=== PATIENT | female | born 1985 | race Caucasian/White ===

== ENCOUNTER 2018-01-19 13:12 | Outpatient (CLI) | payer OTHER, SELFPAY | END 2018-01-19 14:40 | disposition home or self-care (01) | LOC: LABOR 14:41 → OB 01-22 11:12 | PROVIDERS: PCP Family Medicine; Visit Provider Obstetrics & Gynecology | DX: O34.33 Maternal care for cervical incompetence, third trimester (principal); Z3A.36 36 weeks gestation of pregnancy | CPT/HCPCS: 59025; G0378; G0379 ==

== ENCOUNTER 2018-09-20 11:20 | Emergency (ER) | payer OTHER, SELFPAY ==
[2018-09-20 12:00] VITALS: BP 123/83; PULSE 88; RESP 18; TEMP 36.2; O2SAT 100; BMI 24.0
--- NOTE | 2018-09-20 12:26 | ED.PSYCH ---
HPI - Psych General Chief Complaint: Psychiatric Symptoms Stated Complaint: suicidal Time Seen by Provider: 09/20/18 12:25 Source: patient and family Mode of arrival: ambulatory Limitations: no limitations History of Present Illness HPI Narrative: This is a 32-year-old who comes in with complaint of depression and suicidal ideation. Patient is about 6-7 months . She states she has had history of depression in past. She has been hospitalized twice in the past all anteriorly. The most recent was in 2010. She has been taking Abilify, escitalopram as well as Wellbutrin. They increased her Abilify dose about 30 days ago and initially she had some improvement in her symptomatology but that has been worsening. She states she had a friend visiting at that time as well so she thought that may have been a compounding factor. Patient states that she has been having increasing thoughts of suicide and does not feel safe that she would not perform these. She states that she is concerned that if she was an impulsive moment that she potentially kill herself. Her main plan is to go to a local [facility] park that is quiet and are not very many visitors and use a plastic bag to wrap around her head. She states she would wear an adult diaper because she knows that she would have loss of the bladder control. Her other choice would be to go to [employer] [facility] and [employer] [facility]. The patient's has removed all firearms from house. She does not express any desire or wish to hurt others for her child. She states that she has always had issues with depression but that has been worse since she had her baby. She is not breast-feeding so that she does not have any medication restrictions. She has been getting 6-7 hours of sleep nightly, her has been taking night duties so that she can get regular sleep. Patient denies any hallucinations. Related Data Home Medications Medication Instructions Recorded Confirmed escitalopram oxalate 30 mg PO DAILY #0 11/23/16 09/20/18 L norgest/e.estradiol-e.estrad 1 tab PO DAILY 09/20/18 09/20/18 [Camrese] aripiprazole [Abilify] 2 mg PO DAILY 09/20/18 09/20/18 bupropion HCl 150 mg PO DAILY 09/20/18 09/20/18 Allergies Allergy/AdvReac Type Severity Reaction Status Date / Time azithromycin [AZITHROMYCIN] Allergy Unknown Unverified 09/20/17 12:31 Sulfa (Sulfonamide Allergy Unknown Unverified 09/20/17 12:31 Antibiotics) [SULFA (SULFONAMIDE ANTIBIOTICS)] Review of Systems Review of Systems ROS Unobtainable: All systems reviewed & are unremarkable except as noted in HPI and below Neurologic Denies confusion Psychiatric Reports as per HPI, Denies confusion, Reports depression, Denies auditory hallucinations, Reports hopelessness, Reports anhedonia, Denies paranoia, Denies visual hallucinations, Denies hallucinations, Denies homicidal ideation and Reports suicidal ideation [facility] Medical History Anxiety (Chronic) Asthma (Chronic) Depression (Chronic) Surgical History History of elective (Resolved 2012) History of third molar tooth extraction (Resolved) Status post dilation and curettage (Resolved 11/24/16) Social History Smoking Status: Never smoker Social History (Updated 09/20/18 @ 16:18 by Nimisha Jarquin DO) marital status: number of children: 1 household members: spouse and children lives independently: Yes housing: house Smoking Status: Never smoker Exam Narrative Exam Narrative: GENERAL: Alert and oriented x three, well-nourished female in moderate distress. Patient has flat affect. HEENT: Head normocephalic, atraumatic, EOMI, pupils reactive, face symmetric, moist mucous membranes NECK: Supple, full range of motion CARDIOVASCULAR: Regular rate and rhythm without murmurs, rubs or gallops. RESPIRATORY: Breath sounds equal bilaterally, no wheezes rales or rhonchi. ABDOMEN: Soft, nontender. Normoactive bowel sounds all 4 quadrants. No guarding or rebound, rigidity, no mass : No CVA tenderness EXTREMITIES: Normal range of motion, no clubbing or edema. Neurovascularly intact. Normal gait. NEUROLOGICAL: Cranial nerves II through XII grossly intact. Moving all extremities SKIN: Warm, dry, no petechiae, no rashes or lesions. PSYCH: Suicidal ideation, denies homicidal ideation/intent. Denies hallucinations. Initial Vital Signs Initial Vital Signs: Vital Signs Temperature 97.2 F L 09/20/18 12:00 Pulse Rate 88 09/20/18 12:00 Respiratory Rate 18 04/11/19 12:00 Blood Pressure 123/83 09/20/18 12:00 Pulse Oximetry 100 09/20/18 12:00 Course Orders Ordered: ED Orders 09/20/18 12:37 Consult to [employer] Stat 09/20/18 13:20 Test Urine Stat Urine Culture Stat Urine Drug Screen, Rapid Stat Urine Microscopic Stat 09/20/18 13:38 Complete Blood Count AUTO DIFF Stat Comprehensive Metabolic Panel Stat Ethanol (ETOH) Stat Thyroid Stimulating Hormone Stat Vital Signs - 8 hr 09/20/18 12:00 09/20/18 18:18 Temperature 97.2 F L 98.4 F Pulse Rate 88 77 Respiratory Rate 18 16 Blood Pressure 123/83 Blood Pressure [Right Arm] 109/68 Pulse Oximetry 100 98 MDM - Psych Lab Data Attestation: I reviewed the patient's lab results. Result diagrams: 09/20/18 13:38 09/20/18 13:38 Lab Results 09/20/18 09/20/18 09/20/18 Range/Units 13:20 13:20 13:20 WBC (4.5-11.0) X10^3/uL RBC (4.0-5.2) X10^6/uL Hgb (12.0-16.0) g/dL Hct (36-46) % MCV (80-100) fL MCH (26-34) PG MCHC (30-36) % RDW (11.6-14.8) % Plt Count (150-400) X10^3/uL Neut % (Auto) (50-75) % Lymph % (Auto) (25-40) % [place] % (Auto) (3-14) % Eos % (Auto) (2-4) % Baso % (Auto) (0-2) % Neut # (Auto) (5460-1689) /uL Lymph # (Auto) (6164-8518) /uL [place] # (Auto) (0-900) /uL Eos # (Auto) (0-450) /uL Baso # (Auto) (0-100) /uL Sodium (137-145) mmol/L Potassium (3.4-5.1) mmol/L Chloride (98-107) mmol/L Carbon Dioxide (22-32) mmol/L BUN (7-17) mg/dL Creatinine (0.52-1.04) mg/dL Estimated GFR (>60) mL/min BUN/Creatinine Ratio (6-22) Glucose (70-100) mg/dL Calcium (8.4-10.2) mg/dL Total Bilirubin (0.2-1.3) mg/dL AST (14-36) IU/L ALT (9-52) IU/L Alkaline Phosphatase (38-126) U/L Total Protein (6.3-8.2) g/dL Albumin (3.5-5.0) g/dL Globulin (1.7-4.1) g/dL Albumin/Globulin Ratio (1.0-2.8) TSH (0.47-4.68) uIU/mL Urine RBC None seen (0-5/HPF) Urine WBC 1-5/hpf (0-5/HPF) Ur Squamous Epith Cells 0-1 /hpf (0-5/HPF) Amorphous Sediment 1+ Urine Bacteria Occasional (0-1) (None) Ur Culture Indicated? Specimen cultured Urine Test Negative (Negative) Urine Opiates Screen Negative (Negative) Ur Oxycodone Screen Negative (Negative) Urine Methadone Screen Negative (Negative) Ur Barbiturates Screen Negative (Negative) U Tricyclic Antidepress Negative (Negative) Ur Phencyclidine Scrn Negative (Negative) Ur Amphetamines Screen Negative (Negative) U Methamphetamines Scrn Negative (Negative) Ur MDMA Scrn (Ecstasy) Negative (Negative) U Benzodiazepines Scrn Negative (Negative) Urine Cocaine Screen Negative (Negative) U Marijuana (THC) Screen Negative (Negative) Ethyl Alcohol mg/dL 09/20/18 09/20/18 09/20/18 Range/Units 13:38 13:38 13:38 WBC 4.1 L (4.5-11.0) X10^3/uL RBC 4.70 (4.0-5.2) X10^6/uL Hgb 13.8 (12.0-16.0) g/dL Hct 40.5 (36-46) % MCV 86.2 (80-100) fL MCH 29.3 (26-34) PG MCHC 34.0 (30-36) % RDW 13.3 (11.6-14.8) % Plt Count 261 (150-400) X10^3/uL Neut % (Auto) 63.7 (50-75) % Lymph % (Auto) 29.2 (25-40) % [place] % (Auto) 4.9 (3-14) % Eos % (Auto) 1.1 L (2-4) % Baso % (Auto) 1.1 (0-2) % Neut # (Auto) 2600 (5145-2924) /uL Lymph # (Auto) 1200 (2889-0411) /uL [place] # (Auto) 200 (0-900) /uL Eos # (Auto) 0 (0-450) /uL Baso # (Auto) 0 (0-100) /uL Sodium 142 (137-145) mmol/L Potassium 4.4 (3.4-5.1) mmol/L Chloride 105 (98-107) mmol/L Carbon Dioxide 25 (22-32) mmol/L BUN 11 (7-17) mg/dL Creatinine 1.00 (0.52-1.04) mg/dL Estimated GFR > 60.0 (>60) mL/min BUN/Creatinine Ratio 11.0 (6-22) Glucose 100 (70-100) mg/dL Calcium 9.1 (8.4-10.2) mg/dL Total Bilirubin 0.3 (0.2-1.3) mg/dL AST 17 (14-36) IU/L ALT 19 (9-52) IU/L Alkaline Phosphatase 57 (38-126) U/L Total Protein 7.4 (6.3-8.2) g/dL Albumin 4.3 (3.5-5.0) g/dL Globulin 3.1 (1.7-4.1) g/dL Albumin/Globulin Ratio 1.4 (1.0-2.8) TSH 2.73 (0.47-4.68) uIU/mL Urine RBC (0-5/HPF) Urine WBC (0-5/HPF) Ur Squamous Epith Cells (0-5/HPF) Amorphous Sediment Urine Bacteria (None) Ur Culture Indicated? Urine Test (Negative) Urine Opiates Screen (Negative) Ur Oxycodone Screen (Negative) Urine Methadone Screen (Negative) Ur Barbiturates Screen (Negative) U Tricyclic Antidepress (Negative) Ur Phencyclidine Scrn (Negative) Ur Amphetamines Screen (Negative) U Methamphetamines Scrn (Negative) Ur MDMA Scrn (Ecstasy) (Negative) U Benzodiazepines Scrn (Negative) Urine Cocaine Screen (Negative) U Marijuana (THC) Screen (Negative) Ethyl Alcohol < 10 mg/dL Point of Care Testing Test Results Negative Urine Dip Bedside Urine Glucose Negative Bedside Urine Bilirubin - Negative Bedside Urine Ketone - Negative Urine Specific [employer] 1.015 Bedside Urine Occult Blood - Negative Bedside Urine pH 6 Bedside Urine Protein - Negative Bedside Urine Urobilinogen - Negative Bedside Urine Nitrite - Negative Bedside Urine Leukocytes + 70 Esterase MDM Narrative Medical decision making narrative: Recheck with patient, all lab work does not show any acute abnormalities except for some leukocyte esterase, occasional bacteria but there is also a squamous epithelial. Urine was sent for culture. The patient does not have any urinary symptoms at this time. Patient has been having suicidal ideation which has coming increasingly worse and has not been responding to multiple medications. Patient states that she is feeling unsafe at home and that they are not able to keep her safe there. She brought herself voluntarily along with her . Patient has been hospitalized twice before the most recent 2010 for depression. She feels the . Has probably been exacerbating this, she has been trying to get better sleep but does awaken and sometimes have irregular sleep patterns. Her is also quite concerned about her safety and they have taken steps to help try to keep her safe at home. Beds available at [facility] and [facility]. Chart faxed to both facilities. [facility] accepts, asks for BLS transport. Patient can visit with at least two days while there. Patient and and I discussed. Patient is agreeable to transport via BLS. Initially had asked to transport in private vehicle. Has been cooperative and appropriate throughout stay. Still endorses suicidal ideation. Discharge Plan Departure Patient Disposition: [facility] Clinical Impression: Depression, , Suicidal ideation Discharge Date/Time: 09/20/18 18:35 Interventions: ED Discharge Assessment Last Done: 09/20/18 18:30 Prescriptions: No Action escitalopram oxalate 20 MG tablet 30 mg PO DAILY Qty: 0 RF: 0 bupropion HCl 150 mg tablet extended release 24 hr 150 mg PO DAILY RF: 0 aripiprazole [Abilify] 2 mg tablet 2 mg PO DAILY RF: 0 L norgest/e.estradiol-e.estrad [Camrese] 0.15 mg-30 mcg (84)/10 mcg (7) tablets,dose pack,3 month 1 tab PO DAILY RF: 0 Referrals: Indira Monroy PA-C [Primary Care Provider] -
--- NOTE | 2018-09-20 13:29 | PC.NURSE ---
spouse and infant in room. personal items removed including knitting needles. clothing in cupboard and spouse put pt purse and his belongings are in a locker. pt spouse has quach to locker.
[2018-09-20 13:31] LABS: RBC Urine None Seen (0-5/HPF)
--- NOTE | 2018-09-20 13:33 | PC.NURSE ---
Labs being drawn. Food ordered
[2018-09-20 13:40] LABS: Amorphous Sediment Urine 1+; Bacteria Urine Occasional (0-1); Culture Indicated Urine Specimen Cultured; Squamous Epithelial Cell Urine 0-1 /HPF (0-5/HPF); WBC Urine 1-5/HPF (0-5/HPF)
[2018-09-20 13:41] LABS: Add Manual Diff / Slide Review NO; Basophils Absolute Auto 0 /uL (0-100); Basophils Percent Auto 1.1 % (0-2); Eosinophils Absolute Auto 0 /uL (0-450); Eosinophils Percent Auto 1.1 % (2-4); Hematocrit 40.5 % (36-46); Hemoglobin 13.8 g/dL (12.0-16.0); Lymphocytes Absolute Auto 1200 /uL (1100-4500); Lymphocytes Percent Auto 29.2 % (25-40); Mean Corpuscular Hemoglobin 29.3 PG (26-34); Mean Corpuscular Volume 86.2 fL (80-100); Monocytes Absolute Auto 200 /uL (0-900); Monocytes Percent Auto 4.9 % (3-14); Neutrophils Absolute Auto 2600 /uL (1500-7000); Neutrophils Percent Auto 63.7 % (50-75); Platelet Count 261 X10^3/uL (150-400); Red Cell Distribution Width 13.3 % (11.6-14.8); White Blood Cell Count 4.1 X10^3/uL (4.5-11.0)
[2018-09-20 13:45] LABS: Urine Amphetamines Negative (Negative); Urine Barbiturates Negative (Negative); Urine Benzodiazepines Negative (Negative); Urine Cocaine Negative (Negative); Urine MDMA Negative (Negative); Urine Methadone Negative (Negative); Urine Methamphetamines Negative (Negative); Urine Morphine/Opi cutoff 2000 Negative (Negative); Urine Oxycodone Negative (Negative); Urine Phencyclidine Negative (Negative); Urine Tetrahydrocannabinol Negative (Negative); Urine Tricyclic Antidepressant Negative (Negative)
[2018-09-20 13:56] LABS: Alanine Aminotransferase 19 IU/L (9-52); Albumin 4.3 g/dL (3.5-5.0); Albumin Globulin Ratio 1.4 (1.0-2.8); Alkaline Phosphatase 57 U/L (38-126); Aspartate Aminotransferase 17 IU/L (14-36); Bilirubin Total 0.3 mg/dL (0.2-1.3); Blood Urea Nitrogen 11 mg/dL (7-17); Calcium 9.1 mg/dL (8.4-10.2); Carbon Dioxide 25 mmol/L (22-32); Chloride 105 mmol/L (98-107); Estimated Glomerular Filt Rate > 60.0 mL/min (>60); Ethanol (ETOH) < 10 mg/dL; Globulin 3.1 g/dL (1.7-4.1); Glucose 100 mg/dL (70-100); HEMOLYSIS < 15 (0-50); Potassium 4.4 mmol/L (3.4-5.1); Sodium 142 mmol/L (137-145); Total Protein 7.4 g/dL (6.3-8.2)
--- NOTE | 2018-09-20 14:01 | PC.NURSE ---
Pt in room with ,calm/cooperative.
--- NOTE | 2018-09-20 14:15 | PC.NURSE ---
in room with pt. Pt holding baby
--- NOTE | 2018-09-20 14:18 | PC.NURSE ---
attempting to get in contact with social psychologist to come see pt.
[2018-09-20 14:26] LABS: Thyroid Stimulating Hormone 2.73 uIU/mL (0.47-4.68)
--- NOTE | 2018-09-20 14:37 | ED_ITS ---
HPI - Psych General Chief Complaint: Psychiatric Symptoms Stated Complaint: suicidal Time Seen by Provider: 09/20/18 12:25 Source: patient and family Mode of arrival: ambulatory Limitations: no limitations History of Present Illness HPI Narrative: This is a 32-year-old who comes in with complaint of depression and suicidal ideation. Patient is about 6-7 months . She states she has had history of depression in past. She has been hospitalized twice in the past all anteriorly. The most recent was in 2010. She has been taking Abilify, escitalopram as well as Wellbutrin. They increased her Abilify dose about 30 days ago and initially she had some improvement in her symptomatology but that has been worsening. She states she had a friend visiting at that time as well so she thought that may have been a compounding factor. Patient states that she has been having increasing thoughts of suicide and does not feel safe that she would not perform these. She states that she is concerned that if she was an impulsive moment that she potentially kill herself. Her main plan is to go [place] [facility] that is quiet and are not very many visitors and use a plastic bag to wrap around her head. She states she would wear an adult diaper because she knows that she would have loss of the bladder control. Her other choice would be to go to [email or web address] [email or web address] [facility]. The patient's has removed all firearms from house. She does not express any desire or wish to hurt others for her child. She states that she has always had issues with depression but that has been worse since she had her baby. She is not breast-feeding so that she does not have any medication restrictions. She has been getting 6-7 hours of sleep nightly, her has been taking night d uties so that she can get regular sleep. Patient denies any hallucinations. Related Data Home Medications Medication Instructions Recorded Confirmed escitalopram oxalate 30 mg PO DAILY #0 11/23/16 09/20/18 L norgest/e.estradiol-e.estrad 1 tab PO DAILY 09/20/18 09/20/18 [Camrese] aripiprazole [Abilify] 2 mg PO DAILY 09/20/18 09/20/18 bupropion HCl 150 mg PO DAILY 09/20/18 09/20/18 Allergies Allergy/AdvReac Type Severity Reaction Status Date / Time azithromycin [AZITHROMYCIN] Allergy Unknown Unverified 09/20/17 12:31 Sulfa (Sulfonamide Allergy Unknown Unverified 09/20/17 12:31 Antibiotics) [SULFA (SULFONAMIDE ANTIBIOTICS)] Review of Systems Review of Systems ROS Unobtainable: All systems reviewed & are unremarkable except as noted in HPI and below Neurologic Denies confusion Psychiatric Reports as per HPI, Denies confusion, Reports depression, Denies auditory hallucinations, Reports hopelessness, Reports anhedonia, Denies paranoia, Denies visual hallucinations, Denies hallucinations, Denies homicidal ideation and Reports suicidal ideation [facility] Medical History Anxiety (Chronic) Asthma (Chronic) Depression (Chronic) Surgical History History of elective (Resolved 2012) History of third molar tooth extraction (Resolved) Status post dilation and curettage (Resolved 11/24/16) Social History Smoking Status: Never smoker Social History (Updated 09/20/18 @ 16:18 by Nimisha Jarquin DO) marital status: number of children: 1 household members: spouse and children lives independently: Yes housing: house Smoking Status: Never smoker Exam Narrative Exam Narrative: GENERAL: Alert and oriented x three, well-nourished female in moderate distress. Patient has flat affect. HEENT: Head normocephalic, atraumatic, EOMI, pupils reactive, face symmetric, moist mucous membranes NECK: Supple, full range of motion CARDIOVASCULAR: Regular rate and rhythm without murmurs, rubs or gallops. RESPIRATORY: Breath sounds equal bilaterally, no wheezes rales or rhonchi. ABDOMEN: Soft, nontender. Normoactive bowel sounds all 4 quadrants. No guarding or rebound, rigidity, no mass : No CVA tenderness EXTREMITIES: Normal range of motion, no clubbing or edema. Neurovascularly intact. Normal gait. NEUROLOGICAL: Cranial nerves II through XII grossly intact. Moving all extremities SKIN: Warm, dry, no petechiae, no rashes or lesions. PSYCH: Suicidal ideation, denies homicidal ideation/intent. Denies hallucinations. Initial Vital Signs Initial Vital Signs: Vital Signs Temperature 97.2 F L 09/20/18 12:00 Pulse Rate 88 09/20/18 12:00 Respiratory Rate 18 09/20/18 12:00 Blood Pressure 123/83 09/20/18 12:00 Pulse Oximetry 100 09/20/18 12:00 Course Orders Ordered: ED Orders 09/20/18 12:37 Consult to [employer] 9 [employer] 12 Teacher Stat 09/20/18 13:20 Test Urine Stat Urine Culture Stat Urine Drug Screen, Rapid Stat Urine Microscopic Stat 09/20/18 13:38 Complete Blood Count AUTO DIFF Stat Comprehensive Metabolic Panel Stat Ethanol (ETOH) Stat Thyroid Stimulating Hormone Stat Vital Signs - 8 hr 09/20/18 12:00 09/20/18 18:18 Temperature 97.2 F L 98.4 F Pulse Rate 88 77 Respiratory Rate 18 16 Blood Pressure 123/83 Blood Pressure [Right Arm] 109/68 Pulse Oximetry 100 98 MDM - Psych Lab Data Attestation: I reviewed the patient's lab results. Result diagrams: 09/20/18 13:38 09/20/18 13:38 Lab Results 09/20/18 09/20/18 09/20/18 Range/Units 13:20 13:20 13:20 WBC (4.5-11.0) X10^3/uL RBC (4.0-5.2) X10^6/uL Hgb (12.0-16.0) g/dL Hct (36-46) % MCV (80-100) fL MCH (26-34) PG MCHC (30-36) % RDW (11.6-14.8) % Plt Count (150-400) X10^3/uL Neut % (Auto) (50-75) % Lymph % (Auto) (25-40) % [place] % (Auto) (3-14) % Eos % (Auto) (2-4) % Baso % (Auto) (0-2) % Neut # (Auto) (1497-3557) /uL Lymph # (Auto) (4507-0989) /uL [place] # (Auto) (0-900) /uL Eos # (Auto) (0-450) /uL Baso # (Auto) (0-100) /uL Sodium (137-145) mmol/L Potassium (3.4-5.1) mmol/L Chloride (98-107) mmol/L Carbon Dioxide (22-32) mmol/L BUN (7-17) mg/dL Creatinine (0.52-1.04) mg/dL Estimated GFR (>60) mL/min BUN/Creatinine Ratio (6-22) Glucose (70-100) mg/dL Calcium (8.4-10.2) mg/dL Total Bilirubin (0.2-1.3) mg/dL AST (14-36) IU/L ALT (9-52) IU/L Alkaline Phosphatase (38-126) U/L Total Protein (6.3-8.2) g/dL Albumin (3.5-5.0) g/dL Globulin (1.7-4.1) g/dL Albumin/Globulin Ratio (1.0-2.8) TSH (0.47-4.68) uIU/mL Urine RBC None seen (0-5/HPF) Urine WBC 1-5/hpf (0-5/HPF) Ur Squamous Epith Cells 0-1 /hpf (0-5/HPF) Amorphous Sediment 1+ Urine Bacteria Occasional (0-1) (None) Ur Culture Indicated? Specimen cultured Urine Test Negative (Negative) Urine Opiates Screen Negative (Negative) Ur Oxycodone Screen Negative (Negative) Urine Methadone Screen Negative (Negative) Ur Barbiturates Screen Negative (Negative) U Tricyclic Antidepress Negative (Negative) Ur Phencyclidine Scrn Negative (Negative) Ur Amphetamines Screen Negative (Negative) U Methamphetamines Scrn Negative (Negative) Ur MDMA Scrn (Ecstasy) Negative (Negative) U Benzodiazepines Scrn Negative (Negative) Urine Cocaine Screen Negative (Negative) U Marijuana (THC) Screen Negative (Negative) Ethyl Alcohol mg/dL 09/20/18 09/20/18 09/20/18 Range/Units 13:38 13:38 13:38 WBC 4.1 L (4.5-11.0) X10^3/uL RBC 4.70 (4.0-5.2) X10^6/uL Hgb 13.8 (12.0-16.0) g/dL Hct 40.5 (36-46) % MCV 86.2 (80-100) fL MCH 29.3 (26-34) PG MCHC 34.0 (30-36) % RDW 13.3 (11.6-14.8) % Plt Count 261 (150-400) X10^3/uL Neut % (Auto) 63.7 (50-75) % Lymph % (Auto) 29.2 (25-40) % [place] % (Auto) 4.9 (3-14) % Eos % (Auto) 1.1 L (2-4) % Baso % (Auto) 1.1 (0-2) % Neut # (Auto) 2600 (6934-7366) /uL Lymph # (Auto) 1200 (3232-7190) /uL [place]lee # (Auto) 200 (0-900) /uL Eos # (Auto) 0 (0-450) /uL Baso # (Auto) 0 (0-100) /uL Sodium 142 (137-145) mmol/L Potassium 4.4 (3.4-5.1) mmol/L Chloride 105 (98-107) mmol/L Carbon Dioxide 25 (22-32) mmol/L BUN 11 (7-17) mg/dL Creatinine 1.00 (0.52-1.04) mg/dL Estimated GFR > 60.0 (>60) mL/min BUN/Creatinine Ratio 11.0 (6-22) Glucose 100 (70-100) mg/dL Calcium 9.1 (8.4-10.2) mg/dL Total Bilirubin 0.3 (0.2-1.3) mg/dL AST 17 (14-36) IU/L ALT 19 (9-52) IU/L Alkaline Phosphatase 57 (38-126) U/L Total Protein 7.4 (6.3-8.2) g/dL Albumin 4.3 (3.5-5.0) g/dL Globulin 3.1 (1.7-4.1) g/dL Albumin/Globulin Ratio 1.4 (1.0-2.8) TSH 2.73 (0.47-4.68) uIU/mL Urine RBC (0-5/HPF) Urine WBC (0-5/HPF) Ur Squamous Epith Cells (0-5/HPF) Amorphous Sediment Urine Bacteria (None) Ur Culture Indicated? Urine Test (Negative) Urine Opiates Screen (Negative) Ur Oxycodone Screen (Negative) Urine Methadone Screen (Negative) Ur Barbiturates Screen (Negative) U Tricyclic Antidepress (Negative) Ur Phencyclidine Scrn (Negative) Ur Amphetamines Screen (Negative) U Methamphetamines Scrn (Negative) Ur MDMA Scrn (Ecstasy) (Negative) U Benzodiazepines Scrn (Negative) Urine Cocaine Screen (Negative) U Marijuana (THC) Screen (Negative) Ethyl Alcohol < 10 mg/dL Point of Care Testing Test Results Negative Urine Dip Bedside Urine Glucose Negative Bedside Urine Bilirubin - Negative Bedside Urine Ketone - Negative Urine Specific [place] 1.015 Bedside Urine Occult Blood - Negative Bedside Urine pH 6 Bedside Urine Protein - Negative Bedside Urine Urobilinogen - Negative Bedside Urine Nitrite - Negative Bedside Urine Leukocytes + 70 Esterase MDM Narrative Medical decision making narrative: Recheck with patient, all lab work does not show any acute abnormalities except for some leukocyte esterase, occasional bacteria but there is also a squamous epithelial. Urine was sent for culture. The patient does not have any urinary symptoms at this time. Patient has been having suicidal ideation which has coming increasingly worse and has not been responding to multiple medications. Patient states that she is feeling unsafe at home and that they are not able to keep her safe there. She brought herself voluntarily along with her . Patient has been hospitalized twice before the most recent 2010 for depression. She feels the . Has probably been exacerbating this, she has been trying to get better sleep but does awaken and sometimes have irregular sleep patterns. Her is also quite concerned about her safety and they have taken steps to help try to keep her safe at home. Beds available at [facility] and [facility]. Chart faxed to both facilities. [facility] accepts, asks for BLS transport. Patient can visit with at least two days while there. Patient and and I discussed. Patient is agreeable to transport via BLS. Initially had asked to transport in private vehicle. Has been cooperative and appropriate throughout stay. Still endorses suicidal ideation. Discharge Plan Departure Patient Disposition: [facility] Clinical Impression: Depression, , Suicidal ideation Discharge Date/Time: 09/20/18 18:35 Interventions: ED Discharge Assessment Last Done: 09/20/18 18:30 Prescriptions: No Action escitalopram oxalate 20 MG tablet 30 mg PO DAILY Qty: 0 RF: 0 bupropion HCl 150 mg tablet extended release 24 hr 150 mg PO DAILY RF: 0 aripiprazole [Abilify] 2 mg tablet 2 mg PO DAILY RF: 0 L norgest/e.estradiol-e.estrad [Camrese] 0.15 mg-30 mcg (84)/10 mcg (7) tablets,dose pack,3 month 1 tab PO DAILY RF: 0 Referrals: Indira Monroy PA-C [Primary Care Provider] -
--- NOTE | 2018-09-20 15:01 | PC.NURSE ---
pts remains in room.
--- NOTE | 2018-09-20 15:01 | PC.NURSE ---
in room,pt remains calm/cooperative
--- NOTE | 2018-09-20 15:39 | PC.NURSE ---
in room,pt knitting,calm/cooperative
--- NOTE | 2018-09-20 16:03 | PC.NURSE ---
Social work not able to assist ED pt at this time. Will start calling facilities for placement
--- NOTE | 2018-09-20 16:06 | PC.NURSE ---
pts in room with pt.
--- NOTE | 2018-09-20 16:07 | PC.NURSE ---
pts in room with pt
--- NOTE | 2018-09-20 16:22 | PC.NURSE ---
[facility] can not take pt due to beds
[2018-09-20 16:36] LABS: Pregnancy Test Urine Negative (Negative)
--- NOTE | 2018-09-20 16:36 | PC.NURSE ---
[facility] is looking over pts info
--- NOTE | 2018-09-20 16:49 | PC.NURSE ---
updated pt and ,waiting for 2 facilities to look over pt info
--- NOTE | 2018-09-20 16:52 | PC.NURSE ---
pt concerned that she may not be able to see child while admitted. Making pt anxious about being admitted
--- NOTE | 2018-09-20 17:11 | PC.NURSE ---
[facility] accepted. [facility] ETA 1830,pt can arrive at [facility] at 2000. [phone] [facility] [id number] [facility] Report to [phone] [facility] accepted pt per intake [place]
[2018-09-20 18:18] VITALS: BP 109/68; PULSE 77; RESP 16; TEMP 36.9; O2SAT 98
== END 2018-09-20 18:35 | disposition short-term general hospital (02) ==
PROVIDERS: Emergency Provider Emergency Medicine; Family Provider Family Medicine; PCP Physician Assistant
DX: O99.345 Other mental disorders complicating the puerperium (principal); R45.851 Suicidal ideations
CPT/HCPCS: 36415; 80053; 80305; 80320; 81003; 81015; 81025; 84443; 85025; 87077; 87086; 87186; 99282; 99285

== ENCOUNTER 2019-03-04 13:51 | Emergency (ER) | payer OTHER, SELFPAY ==
[2019-03-04 13:54] VITALS: BP 122/76; PULSE 101; RESP 20; TEMP 36.6; O2SAT 100
[2019-03-04 14:21] LABS: Influenza A and B by PCR Rapid Negative (Negative)
[2019-03-04 15:20] VITALS: BP 113/76; PULSE 101; RESP 18; TEMP 38.4; O2SAT 100
--- NOTE | 2019-03-04 16:09 | DI.RAD.S_ITS ---
PROCEDURE: XR CHEST 2V INDICATIONS: fever TECHNIQUE: 2 views of the chest were acquired. COMPARISON: None. FINDINGS: Surgical changes and devices: None. Lungs and pleura: Lungs are clear. No pleural effusions or pneumothorax. Mediastinum: Mediastinal contours are normal. Heart size is normal. Bones and chest wall: No suspicious bony abnormalities. Soft tissues appear unremarkable. IMPRESSION: Source of fever is not seen. Dictated by: Naif Cárdenas M.D. on 03/04/2019 at 16:28 Approved by: Naif Cárdenas M.D. on 03/04/2019 at 16:36
[2019-03-04 16:27] LABS: Bacteria Urine Few (2-10); Culture Indicated Urine Specimen Cultured; RBC Urine 1-5/HPF (0-5/HPF); Squamous Epithelial Cell Urine 1-5 /HPF (0-5/HPF); Urine Comments LEU +; WBC Urine 1-5/HPF (0-5/HPF)
[2019-03-04] MEDS: ACETAMINOPHEN 325 MG TABLET 975 MG PO (17:04)
[2019-03-04 17:24] LABS: Add Manual Diff / Slide Review NO; Basophils Absolute Auto 0 /uL (0-100); Basophils Percent Auto 0.1 % (0-2); Eosinophils Absolute Auto 200 /uL (0-450); Eosinophils Percent Auto 3.5 % (2-4); Hemoglobin 13.7 g/dL (12.0-16.0); Lymphocytes Absolute Auto 400 /uL (1100-4500); Lymphocytes Percent Auto 7.7 % (25-40); Mean Corpuscular HGB Conc 34.2 % (30-36); Mean Corpuscular Hemoglobin 28.9 PG (26-34); Mean Corpuscular Volume 84.6 fL (80-100); Monocytes Absolute Auto 100 /uL (0-900); Monocytes Percent Auto 2.9 % (3-14); Neutrophils Absolute Auto 4200 /uL (1500-7000); Neutrophils Percent Auto 85.8 % (50-75); Platelet Count 141 X10^3/uL (150-400); Red Blood Cell Count 4.73 X10^6/uL (4.0-5.2); White Blood Cell Count 4.9 X10^3/uL (4.5-11.0)
[2019-03-04 17:35] LABS: Lactate (Lactic Acid) 0.9 mmol/L (0.7-2.1)
[2019-03-04 17:36] LABS: Alanine Aminotransferase 52 IU/L (9-52); Albumin 4.3 g/dL (3.5-5.0); Albumin Globulin Ratio 1.3 (1.0-2.8); Alkaline Phosphatase 93 U/L (38-126); Aspartate Aminotransferase 49 IU/L (14-36); BUN Creatinine Ratio 8.2 (6-22); Bilirubin Total 0.4 mg/dL (0.2-1.3); Blood Urea Nitrogen 9 mg/dL (7-17); Calcium 8.9 mg/dL (8.4-10.2); Carbon Dioxide 27 mmol/L (22-32); Chloride 99 mmol/L (98-107); Estimated Glomerular Filt Rate 56.5 mL/min (>60); Globulin 3.4 g/dL (1.7-4.1); Glucose 98 mg/dL (70-100); HEMOLYSIS 16 (0-50); Potassium 4.2 mmol/L (3.4-5.1); Sodium 137 mmol/L (137-145); Total Protein 7.7 g/dL (6.3-8.2)
[2019-03-04 17:55] LABS: Procalcitonin 0.18 ng/mL (<0.5)
[2019-03-04 18:58] VITALS: TEMP 38.3
[2019-03-04] MEDS: SODIUM CHLORIDE 0.9% 1,000 ML 1000 ML IV (19:02)
[2019-03-04 19:06] LABS: Monotest Negative (Negative)
[2019-03-04 19:09] VITALS: BP 118/65; PULSE 97; RESP 16; TEMP 37.9; O2SAT 100
[2019-03-04] MEDS: cephALEXin 250 MG CAPSULE 500 MG PO (20:03)
--- NOTE | 2019-03-05 01:51 | ED_ITS ---
HPI - Fever <GUSTAVO Sanchez - Last Filed: 03/05/19 02:21> General Chief Complaint: Fever Stated Complaint: fever,lymph node in arm pit hurts,left sinus Time Seen by Provider: 03/04/19 14:30 Source: patient and family Mode of arrival: Ambulatory Limitations: no limitations History of Present Illness HPI Narrative: This is a 33-year-old female, former smoker, who presents with spouse and toddler daughter with chief complain of fever, chills and left armpit pain since early afternoon yesterday. T-max at home was 100.5 and patient reports generalized body aches more than usual. She denies any recent travel outside the [place] or known ill contacts. Patient also had migraine headache which started on Monday with left-sided face/sinus pain which is patient's usual associated migraine headache presentation and patient reports this is related to hormone and she was off control pill for 1 week. Patient denies any urinary symptoms, cough, sore throat, abdominal discomfort, unusual skin rashes, neck discomfort. Related Data Home Medications Medication Instructions Recorded Confirmed escitalopram oxalate 20 mg PO DAILY #0 11/23/16 03/04/19 bupropion HCl 150 mg PO DAILY 09/20/18 03/04/19 L norgest/e.estradiol-e.estrad 1 tab PO DAILY 03/04/19 03/04/19 [Camrese] aripiprazole 7.5 mg PO DAILY 03/04/19 03/04/19 lamotrigine 50 mg PO DAILY 03/04/19 03/04/19 metformin 500 mg PO DAILY 03/04/19 03/04/19 Previous Rx's Medication Instructions Recorded cephalexin [Keflex] 500 mg PO Q12H 5 Days #10 cap 03/04/19 Allergies Allergy/AdvReac Type Severity Reaction Status Date / Time azithromycin [AZITHROMYCIN] Allergy Unknown Unverified 09/20/17 12:31 Sulfa (Sulfonamide Allergy Unknown Unverified 09/20/17 12:31 Antibiotics) [SULFA (SULFONAMIDE ANTIBIOTICS)] Review of Systems <GUSTAVO Sanchez - Last Filed: 03/05/19 02:21> Review of Systems Narrative: General: Reports fever and chills. HEENT: Reports sinus pain. Denies ear pain, sore throat, difficulty swallowing, dizziness. Respiratory: Denies dyspnea, cough, wheezing, hemoptysis, sputum. Cardiovascular: Denies chest pain, palpitations, orthopnea, edema. Gastrointestinal: Denies nausea, vomiting, abdominal pain, diarrhea, constipation, melena. : Denies dysuria, frequency, incontinence, hematuria, urinary retention. Musculoskeletal: Reports generalized body aches. Skin: Denies rash, skin lesions, or other. Neurologic: Denies weakness, headache, numbness, change in speech, confusion, seizures, incoordination. Psychiatric: No concerning psychosocial issues. 12-point review of systems is negative except for those stated above. PFSH <GUSTAVO Sanchez - Last Filed: 03/05/19 02:21> Medical History Anxiety (Chronic) Asthma (Chronic) Depression (Chronic) Surgical History History of elective (Resolved 2012) History of third molar tooth extraction (Resolved) Status post dilation and curettage (Resolved 11/24/16) Social History (Updated 09/20/18 @ 16:18 by Nimisha Jarquin DO) marital status: number of children: 1 household members: spouse and children lives independently: Yes housing: house Smoking Status: Never smoker Social History marital status: number of children: 1 household members: spouse and children lives independently: Yes housing: house Smoking Status: Never smoker Exam <GUSTAVO Sanchez - Last Filed: 03/05/19 02:21> Narrative Exam Narrative: GEN: Alert, oriented x 3, well appearing and nourished, and in no acute distress. Head: Normal cephalic, atraumatic. No scalp or temporal tenderness, palpable mass or rash. EYES: Pupils are equal, round, and reactive to light and accommodation. Extraocular muscles are intact bilaterally. There is no subconjunctival hemorrhage, exudate and sclera non-icteric. ENT: Bilateral auditory canals and tympanic membranes clear. Hearing grossly intact. Nose without bleeding, purulent discharge or deviation. Facial sinuses nontender to palpate. Mucous membrane moist, no mucosal lesion. Throat without erythema, tonsillar hypertrophy or exudate. Uvula in midline, airway patent. Neck: Trachea in midline. No JVD, non-tender without lymphadenopathy. No masses or thyroid megaly. Supple, non-tender and no meningeal signs. CARDIAC: Normal regular rate and rhythm without murmurs, gallops, or rubs. No chest wall tenderness. No peripheral edema, cyanosis or pallor. Capillary refill is less than 2 seconds. RESPIRATORY: Lungs are cleat to auscultate bilaterally. No cough, wheezes, rales, or rhonchi. No stridor, respiratory distress, increase work of mabel thing, or accessary muscle used. ABD: Abdomen soft, nontender and non-distended. No guarding or rebound tenderness to palpate. Bowel sounds are normal in all 4 quadrants. There is no palpable masses or organomegaly. EXT: Left axilla without obvious arrhythmia, edema, warmth to palpate. Full ROM of all extremities with no loss of sensation, strength, effusion or edema. SKIN: Warm, dry, flushed appearance. No lesions or rash over visible areas. BACK: Nontender without deformity or crepitance. No flank tenderness. NEUROLOGICAL: Alert and oriented to place, time and person. Sensation and motor function intact bilaterally. No facial droops, dysphasia. PSYCHIATRIC: Good judgement and reason, without hallucinations, abnormal affect or abnormal behaviors during the examination. Patient is not suicidal. Initial Vital Signs Initial Vital Signs: Vital Signs Temperature 97.9 F 03/04/19 13:54 Pulse Rate 101 H 03/04/19 13:54 Respiratory Rate 03/04/19 13:54 Blood Pressure 122/76 03/04/19 13:54 Pulse Oximetry 100 03/04/19 13:54 <Rich Easton DO - Last Filed: 03/07/19 20:20> Initial Vital Signs Initial Vital Signs: Vital Signs Temperature 97.9 F 03/04/19 13:54 Pulse Rate 101 H 03/04/19 13:54 Respiratory Rate 03/04/19 13:54 Blood Pressure 122/76 03/04/19 13:54 Pulse Oximetry 100 03/04/19 13:54 Scores <Adán Rajput-GUSTAVO Mujica - Last Filed: 03/05/19 02:21> GCS [place] coma scale eye opening: Spontaneous [place] coma scale verbal response: Orientated [place] coma scale motor response: Obey commands Garrett coma scale total score: 15 Course <Adán GUSTAVO Huddleston - Last Filed: 03/05/19 02:21> Orders Ordered: Discontinued Medications Acetaminophen (Tylenol) 975 mg PO NOW ONE Stop: 03/04/19 15:56 Last Admin: 03/04/19 17:04 Dose: 975 mg Documented by: LUCY Cephalexin HCl (Keflex) 500 mg PO NOW ONE Stop: 03/04/19 19:56 Last Admin: 03/04/19 20:03 Dose: 500 mg Documented by: YESY Sodium Chloride (Normal Saline 0.9%) 1,000 mls @ 1,000 mls/hr IV BOLUS ONE Stop: 03/04/19 19:12 Last Admin: 03/04/19 19:02 Dose: 1,000 mls/hr Documented by: YESY Vital Signs Vital signs: Vital Signs - 8 hr 03/04/19 18:58 03/04/19 19:09 Temperature 100.9 F H 100.2 F H Pulse Rate 97 H Respiratory Rate 16 Blood Pressure [Right Arm] 118/65 Pulse Oximetry 100 <Rich Easton DO - Last Filed: 03/07/19 20:20> Orders Ordered: Discontinued Medications Acetaminophen (Tylenol) 975 mg PO NOW ONE Stop: 03/04/19 15:56 Last Admin: 03/04/19 17:04 Dose: 975 mg Documented by: LUCY Cephalexin HCl (Keflex) 500 mg PO NOW ONE Stop: 03/04/19 19:56 Last Admin: 03/04/19 20:03 Dose: 500 mg Documented by: YESY Sodium Chloride (Normal Saline 0.9%) 1,000 mls @ 1,000 mls/hr IV BOLUS ONE Stop: 03/04/19 19:12 Last Admin: 03/04/19 19:02 Dose: 1,000 mls/hr Documented by: YESY Vital Signs Vital signs: Vital Signs - 8 hr 03/04/19 18:58 03/04/19 19:09 Temperature 100.9 F H 100.2 F H Pulse Rate 97 H Respiratory Rate 16 Blood Pressure [Right Arm] 118/65 Pulse Oximetry 100 MDM - Fever <Adán Rajput-Oras, MACHINE REPAIR PERSON - Last Filed: 03/05/19 02:21> Differential Diagnosis Differential diagnosis: Likely fever of unknown origin, viral infection, influenza and other (UTI) Medical Records Attestation: I reviewed the patient's medical records. Lab Data Attestation: I reviewed the patient's lab results. Result diagrams: 03/04/19 17:10 03/04/19 17:10 Labs: Lab Results 03/04/19 03/04/19 03/04/19 Range/Units 13:57 16:08 17:10 WBC 4.9 (4.5-11.0) X10^3/uL RBC 4.73 (4.0-5.2) X10^6/uL Hgb 13.7 (12.0-16.0) g/dL Hct 40.0 (36-46) % MCV 84.6 (80-100) fL MCH 28.9 (26-34) PG MCHC 34.2 (30-36) % RDW 13.0 (11.6-14.8) % Plt Count 141 L (150-400) X10^3/uL Neut % (Auto) 85.8 H (50-75) % Lymph % (Auto) 7.7 L (25-40) % Wagoner % (Auto) 2.9 L (3-14) % Eos % (Auto) 3.5 (2-4) % Baso % (Auto) 0.1 (0-2) % Neut # (Auto) 4200 (3887-0887) /uL Lymph # (Auto) 400 L (5312-3645) /uL Wagoner # (Auto) 100 (0-900) /uL Eos # (Auto) 200 (0-450) /uL Baso # (Auto) 0 (0-100) /uL Sodium (137-145) mmol/L Potassium (3.4-5.1) mmol/L Chloride (98-107) mmol/L Carbon Dioxide (22-32) mmol/L BUN (7-17) mg/dL Creatinine (0.52-1.04) mg/dL Estimated GFR (>60) mL/min BUN/Creatinine Ratio (6-22) Glucose (70-100) mg/dL Lactate (0.7-2.1) mmol/L Calcium (8.4-10.2) mg/dL Total Bilirubin (0.2-1.3) mg/dL AST (14-36) IU/L ALT (9-52) IU/L Alkaline Phosphatase (38-126) U/L Total Protein (6.3-8.2) g/dL Albumin (3.5-5.0) g/dL Globulin (1.7-4.1) g/dL Albumin/Globulin Ratio (1.0-2.8) Procalcitonin (<0.5) ng/mL Urine RBC 1-5/hpf (0-5/HPF) Urine WBC 1-5/hpf (0-5/HPF) Ur Squamous Epith Cells 1-5 /hpf (0-5/HPF) Urine Bacteria Few (2-10) H (None) Ur Culture Indicated? Specimen cultured Micro UA Comment Juan + Monoscreen (Negative) Influenza A & B (PCR) Negative (Negative) 03/04/19 03/04/19 03/04/19 Range/Units 17:10 17:10 17:10 WBC (4.5-11.0) X10^3/uL RBC (4.0-5.2) X10^6/uL Hgb (12.0-16.0) g/dL Hct (36-46) % MCV (80-100) fL MCH (26-34) PG MCHC (30-36) % RDW (11.6-14.8) % Plt Count (150-400) X10^3/uL Neut % (Auto) (50-75) % Lymph % (Auto) (25-40) % Wagoner % (Auto) (3-14) % Eos % (Auto) (2-4) % Baso % (Auto) (0-2) % Neut # (Auto) (4650-4641) /uL Lymph # (Auto) (9524-7041) /uL Wagoner # (Auto) (0-900) /uL Eos # (Auto) (0-450) /uL Baso # (Auto) (0-100) /uL Sodium 137 (137-145) mmol/L Potassium 4.2 (3.4-5.1) mmol/L Chloride 99 (98-107) mmol/L Carbon Dioxide 27 (22-32) mmol/L BUN 9 (7-17) mg/dL Creatinine 1.10 H (0.52-1.04) mg/dL Estimated GFR 56.5 L (>60) mL/min BUN/Creatinine Ratio 8.2 (6-22) Glucose 98 (70-100) mg/dL Lactate 0.9 (0.7-2.1) mmol/L Calcium 8.9 (8.4-10.2) mg/dL Total Bilirubin 0.4 (0.2-1.3) mg/dL AST 49 H (14-36) IU/L ALT 52 (9-52) IU/L Alkaline Phosphatase 93 (38-126) U/L Total Protein 7.7 (6.3-8.2) g/dL Albumin 4.3 (3.5-5.0) g/dL Globulin 3.4 (1.7-4.1) g/dL Albumin/Globulin Ratio 1.3 (1.0-2.8) Procalcitonin 0.18 (<0.5) ng/mL Urine RBC (0-5/HPF) Urine WBC (0-5/HPF) Ur Squamous Epith Cells (0-5/HPF) Urine Bacteria (None) Ur Culture Indicated? Micro UA Comment Monoscreen (Negative) Influenza A & B (PCR) (Negative) 03/04/19 Range/Units 17:10 WBC (4.5-11.0) X10^3/uL RBC (4.0-5.2) X10^6/uL Hgb (12.0-16.0) g/dL Hct (36-46) % MCV (80-100) fL MCH (26-34) PG MCHC (30-36) % RDW (11.6-14.8) % Plt Count (150-400) X10^3/uL Neut % (Auto) (50-75) % Lymph % (Auto) (25-40) % Wagoner % (Auto) (3-14) % Eos % (Auto) (2-4) % Baso % (Auto) (0-2) % Neut # (Auto) (6556-1298) /uL Lymph # (Auto) (8871-5898) /uL Wagoner # (Auto) (0-900) /uL Eos # (Auto) (0-450) /uL Baso # (Auto) (0-100) /uL Sodium (137-145) mmol/L Potassium (3.4-5.1) mmol/L Chloride (98-107) mmol/L Carbon Dioxide (22-32) mmol/L BUN (7-17) mg/dL Creatinine (0.52-1.04) mg/dL Estimated GFR (>60) mL/min BUN/Creatinine Ratio (6-22) Glucose (70-100) mg/dL Lactate (0.7-2.1) mmol/L Calcium (8.4-10.2) mg/dL Total Bilirubin (0.2-1.3) mg/dL AST (14-36) IU/L ALT (9-52) IU/L Alkaline Phosphatase (38-126) U/L Total Protein (6.3-8.2) g/dL Albumin (3.5-5.0) g/dL Globulin (1.7-4.1) g/dL Albumin/Globulin Ratio (1.0-2.8) Procalcitonin (<0.5) ng/mL Urine RBC (0-5/HPF) Urine WBC (0-5/HPF) Ur Squamous Epith Cells (0-5/HPF) Urine Bacteria (None) Ur Culture Indicated? Micro UA Comment Monoscreen Negative (Negative) Influenza A & B (PCR) (Negative) Point of Care Testing Test Results Negative Urine Dip Bedside Urine Glucose Negative Bedside Urine Bilirubin - Negative Bedside Urine Ketone - Negative Urine Specific [place] 1.010 Bedside Urine Occult Blood ++ Bedside Urine pH 6.0 Bedside Urine Protein - Negative Bedside Urine Urobilinogen - Negative Bedside Urine Nitrite - Negative Bedside Urine Leukocytes +/- 15 Esterase Imaging Data Chest x-ray: Radiologist's impression: [address] [address] XRay Report Signed Patient: Irasema Amato [facility]#: [id number] : 1985Acct:[id number] Age/Sex: 33 / FDate of Service: 03/04/19 Loc: ED Accession Number: [id number] Procedure: XR chest 2V Ordering Provider: Adán Huddleston PROCEDURE: XR CHEST 2V INDICATIONS: fever TECHNIQUE: 2 views of the chest were acquired. COMPARISON: None. FINDINGS: Surgical changes and devices: None. Lungs and pleura: Lungs are clear. No pleural effusions or pneumothorax. Mediastinum: Mediastinal contours are normal. Heart size is normal. Bones and chest wall: No suspicious bony abnormalities. Soft tissues appear unremarkable. IMPRESSION: Source of fever is not seen. Dictated by: Naif Cárdenas M.D. on 03/04/2019 at 16:28 Approved by: Naif Cárdenas M.D. on 03/04/2019 at 16:36 [facility] Narrative Medical decision making narrative: This is a 33-year-old female presents to ED with fever, chills and left armpit pain for 2 days. Patient also has migraine headache and sinus discomfort for last 3-4 days. Patient does not have any purulent drainage from nasal sinuses, no cough, no sore throat, rashes. Patient denies recent travel outside the [place] or cat scratches. Chest x-ray was obtained with negative acute findings. Flu swab was negative. Monospot test was added which was negative as well. Normal WBC with elevated neutrophils, with decreased lymph and monocytes with platelets. Procalcitonin was negative today. CMP showed mildly decreased GFR 56.5 with increased creatinine 1.10. Kidney function test in September was Cr 1.0 with GFR >60. Urine test showed postive +/- 15 leuks with ++ blood with 2-10 urine bacteria. Urine is being cultured at this time. Negative urine test. Patient was medicated with Tylenol for elevated T max 101.2 and had IVF infusion. Patient was treated with Keflex for UTI and remaining dose provided a prescription. The findings were shared with patient and spouse at the bedside. Patient was advised to follow up with primary care physician in 2-3 days for recheck and strict return precautions were discussed. Patient advised to use Tylenol for fever and discomfort. The patient verbalized understanding and agrees with treatment plan. <Rich Easton, DO - Last Filed: 03/07/19 20:20> Lab Data Labs: Lab Results 03/04/19 03/04/19 03/04/19 Range/Units 13:57 16:08 17:10 WBC 4.9 (4.5-11.0) X10^3/uL RBC 4.73 (4.0-5.2) X10^6/uL Hgb 13.7 (12.0-16.0) g/dL Hct 40.0 (36-46) % MCV 84.6 (80-100) fL MCH 28.9 (26-34) PG MCHC 34.2 (30-36) % RDW 13.0 (11.6-14.8) % Plt Count 141 L (150-400) X10^3/uL Neut % (Auto) 85.8 H (50-75) % Lymph % (Auto) 7.7 L (25-40) % Wagoner % (Auto) 2.9 L (3-14) % Eos % (Auto) 3.5 (2-4) % Baso % (Auto) 0.1 (0-2) % Neut # (Auto) 4200 (6648-9316) /uL Lymph # (Auto) 400 L (2354-1493) /uL Wagoner # (Auto) 100 (0-900) /uL Eos # (Auto) 200 (0-450) /uL Baso # (Auto) 0 (0-100) /uL Sodium (137-145) mmol/L Potassium (3.4-5.1) mmol/L Chloride (98-107) mmol/L Carbon Dioxide (22-32) mmol/L BUN (7-17) mg/dL Creatinine (0.52-1.04) mg/dL Estimated GFR (>60) mL/min BUN/Creatinine Ratio (6-22) Glucose (70-100) mg/dL Lactate (0.7-2.1) mmol/L Calcium (8.4-10.2) mg/dL Total Bilirubin (0.2-1.3) mg/dL AST (14-36) IU/L ALT (9-52) IU/L Alkaline Phosphatase (38-126) U/L Total Protein (6.3-8.2) g/dL Albumin (3.5-5.0) g/dL Globulin (1.7-4.1) g/dL Albumin/Globulin Ratio (1.0-2.8) Procalcitonin (<0.5) ng/mL Urine RBC 1-5/hpf (0-5/HPF) Urine WBC 1-5/hpf (0-5/HPF) Ur Squamous Epith Cells 1-5 /hpf (0-5/HPF) Urine Bacteria Few (2-10) H (None) Ur Culture Indicated? Specimen cultured Micro UA Comment Juan + Monoscreen (Negative) Influenza A & B (PCR) Negative (Negative) 03/04/19 03/04/19 03/04/19 Range/Units 17:10 17:10 17:10 WBC (4.5-11.0) X10^3/uL RBC (4.0-5.2) X10^6/uL Hgb (12.0-16.0) g/dL Hct (36-46) % MCV (80-100) fL MCH (26-34) PG MCHC (30-36) % RDW (11.6-14.8) % Plt Count (150-400) X10^3/uL Neut % (Auto) (50-75) % Lymph % (Auto) (25-40) % Wagoner % (Auto) (3-14) % Eos % (Auto) (2-4) % Baso % (Auto) (0-2) % Neut # (Auto) (3674-6533) /uL Lymph # (Auto) (5012-5852) /uL Wagoner # (Auto) (0-900) /uL Eos # (Auto) (0-450) /uL Baso # (Auto) (0-100) /uL Sodium 137 (137-145) mmol/L Potassium 4.2 (3.4-5.1) mmol/L Chloride 99 (98-107) mmol/L Carbon Dioxide 27 (22-32) mmol/L BUN 9 (7-17) mg/dL Creatinine 1.10 H (0.52-1.04) mg/dL Estimated GFR 56.5 L (>60) mL/min BUN/Creatinine Ratio 8.2 (6-22) Glucose 98 (70-100) mg/dL Lactate 0.9 (0.7-2.1) mmol/L Calcium 8.9 (8.4-10.2) mg/dL Total Bilirubin 0.4 (0.2-1.3) mg/dL AST 49 H (14-36) IU/L ALT 52 (9-52) IU/L Alkaline Phosphatase 93 (38-126) U/L Total Protein 7.7 (6.3-8.2) g/dL Albumin 4.3 (3.5-5.0) g/dL Globulin 3.4 (1.7-4.1) g/dL Albumin/Globulin Ratio 1.3 (1.0-2.8) Procalcitonin 0.18 (<0.5) ng/mL Urine RBC (0-5/HPF) Urine WBC (0-5/HPF) Ur Squamous Epith Cells (0-5/HPF) Urine Bacteria (None) Ur Culture Indicated? Micro UA Comment Monoscreen (Negative) Influenza A & B (PCR) (Negative) 03/04/19 Range/Units 17:10 WBC (4.5-11.0) X10^3/uL RBC (4.0-5.2) X10^6/uL Hgb (12.0-16.0) g/dL Hct (36-46) % MCV (80-100) fL MCH (26-34) PG MCHC (30-36) % RDW (11.6-14.8) % Plt Count (150-400) X10^3/uL Neut % (Auto) (50-75) % Lymph % (Auto) (25-40) % Wagoner % (Auto) (3-14) % Eos % (Auto) (2-4) % Baso % (Auto) (0-2) % Neut # (Auto) (2242-5794) /uL Lymph # (Auto) (0355-5595) /uL Wagoner # (Auto) (0-900) /uL Eos # (Auto) (0-450) /uL Baso # (Auto) (0-100) /uL Sodium (137-145) mmol/L Potassium (3.4-5.1) mmol/L Chloride (98-107) mmol/L Carbon Dioxide (22-32) mmol/L BUN (7-17) mg/dL Creatinine (0.52-1.04) mg/dL Estimated GFR (>60) mL/min BUN/Creatinine Ratio (6-22) Glucose (70-100) mg/dL Lactate (0.7-2.1) mmol/L Calcium (8.4-10.2) mg/dL Total Bilirubin (0.2-1.3) mg/dL AST (14-36) IU/L ALT (9-52) IU/L Alkaline Phosphatase (38-126) U/L Total Protein (6.3-8.2) g/dL Albumin (3.5-5.0) g/dL Globulin (1.7-4.1) g/dL Albumin/Globulin Ratio (1.0-2.8) Procalcitonin (<0.5) ng/mL Urine RBC (0-5/HPF) Urine WBC (0-5/HPF) Ur Squamous Epith Cells (0-5/HPF) Urine Bacteria (None) Ur Culture Indicated? Micro UA Comment Monoscreen Negative (Negative) Influenza A & B (PCR) (Negative) Point of Care Testing Test Results Negative Urine Dip Bedside Urine Glucose Negative Bedside Urine Bilirubin - Negative Bedside Urine Ketone - Negative Urine Specific [place] 1.010 Bedside Urine Occult Blood ++ Bedside Urine pH 6.0 Bedside Urine Protein - Negative Bedside Urine Urobilinogen - Negative Bedside Urine Nitrite - Negative Bedside Urine Leukocytes +/- 15 Esterase Discharge Plan Departure Patient Disposition: Home Clinical Impression: Fever Qualifiers: Fever type: unspecified Qualified Code(s): R50.9 - Fever, unspecified UTI (urinary tract infection) Qualifiers: Urinary tract infection type: site unspecified Hematuria presence: with hematuria Qualified Code(s): N39.0 - Urinary tract infection, site not specified Discharge Date/Time: 03/04/19 20:18 Instructions: DI for Fever (Symptom) -- Adult Activity Restrictions/Additional Instructions: You have been diagnosed with [fever and UTI. Your urine is being cultured at this time and you will be contacted if the medication is to be changed. The flu swab and Monospot tests were negative. Urine kidney function test is mildly decreased and you were treated with IV fluid while in ED. White blood cell count was normal but there was mild elevation in neutrophils. Lactate and procalcitonin were negative. Chest x-ray was unremarkable]. What to do: *Take your medications as directed. Will treat you has UTI with antibiotic medications at this time. Keflex prescription has been transmitted to [facility] pharmacy. Please hydrate adequately. Please take [id number] Tylenol as needed for discomfort and fever no more than 4 g per 24 hour. *Follow up with your primary care provider in 2-3 days, call for an appointment. Let them know you were seen in the ED and that we asked you to be seen in follow up for today's findings and fever. *Return to ED if you have any new, worsening, or concerning symptoms, such as [chest pain, breathing difficulty, unable to tolerate fluids, abdominal discomfort, unable to void for prolonged period, or any acute concerns]. Prescriptions: New cephalexin [Keflex] 500 mg capsule 500 mg PO Q12H 5 Days Qty: 10 RF: 0 No Action escitalopram oxalate 20 MG tablet 20 mg PO DAILY Qty: 0 RF: 0 bupropion HCl 150 mg tablet extended release 24 hr 150 mg PO DAILY RF: 0 lamotrigine 25 mg tablet 50 mg PO DAILY RF: 0 metformin 500 mg tablet extended release 24 hr 500 mg PO DAILY RF: 0 L norgest/e.estradiol-e.estrad [Camrese] 0.15 mg-30 mcg (84)/10 mcg (7) tablets,dose pack,3 month 1 tab PO DAILY RF: 0 aripiprazole 5 mg tablet 7.5 mg PO DAILY RF: 0 Referrals: Indira Monroy PA-C [Primary Care Provider] -
--- NOTE | 2019-03-28 09:03 | PC.NURSE ---
NS 1L IV stop time 1911 hrs.
== END 2019-03-04 20:18 | disposition home or self-care (01) ==
PROVIDERS: Emergency Medicine; Emergency Provider Nurse Practitioner Family; Family Provider Family Medicine; PCP Physician Assistant
DX: R50.9 Fever, unspecified (principal); N39.0 Urinary tract infection, site not specified
CPT/HCPCS: 36415; 71046; 80053; 81003; 81015; 81025; 83605; 84145; 85025; 86318; 87086; 87400; 87502; 99282; 99284

== ENCOUNTER → 2019-10-28 09:20 | Outpatient (CLI) | payer OTHER, SELFPAY ==
[2019-10-28 11:03] LABS: Add Manual Diff / Slide Review NO; Basophils Absolute Auto 0 /uL (0-100); Basophils Percent Auto 1.1 % (0-2); Eosinophils Absolute Auto 0 /uL (0-450); Hematocrit 43.5 % (36-46); Hemoglobin 15.1 g/dL (12.0-16.0); Lymphocytes Absolute Auto 1100 /uL (1100-4500); Lymphocytes Percent Auto 30.8 % (25-40); Mean Corpuscular HGB Conc 34.8 % (30-36); Mean Corpuscular Hemoglobin 30.4 PG (26-34); Mean Corpuscular Volume 87.4 fL (80-100); Monocytes Absolute Auto 200 /uL (0-900); Monocytes Percent Auto 5.1 % (3-14); Neutrophils Absolute Auto 2300 /uL (1500-7000); Platelet Count 310 X10^3/uL (150-400); Red Blood Cell Count 4.98 X10^6/uL (4.0-5.2); Red Cell Distribution Width 12.6 % (11.6-14.8); White Blood Cell Count 3.7 X10^3/uL (4.5-11.0)
[2019-10-28 11:10] LABS: Alanine Aminotransferase 25 IU/L (<35); Albumin 4.6 g/dL (3.5-5.0); Albumin Globulin Ratio 1.4 (1.0-2.8); Alkaline Phosphatase 92 U/L (38-126); Aspartate Aminotransferase 25 IU/L (14-36); Bilirubin Total 0.5 mg/dL (0.2-1.3); Blood Urea Nitrogen 10 mg/dL (7-17); Calcium 9.4 mg/dL (8.4-10.2); Carbon Dioxide 26 mmol/L (22-32); Chloride 102 mmol/L (98-107); Estimated Glomerular Filt Rate > 60.0 mL/min (>60); Globulin 3.3 g/dL (1.7-4.1); Glucose 98 mg/dL (70-100); HEMOLYSIS < 15 (0-50); Potassium 4.3 mmol/L (3.4-5.1); Sodium 139 mmol/L (137-145); Total Protein 7.9 g/dL (6.3-8.2)
[2019-10-28 22:09] LABS: Valproic Acid (Depakene) Total 36 ug/mL (50-100)
== END ==
PROVIDERS: Psychiatry & Neurology Psychiatry; Family Provider Family Medicine; PCP Physician Assistant; Referring Provider Physician Assistant; Visit Provider Physician Assistant
DX: Z79.899 Other long term (current) drug therapy (principal)
CPT/HCPCS: 36415; 80053; 80164; 85025

== ENCOUNTER → 2020-03-18 09:57 | Outpatient (CLI) | payer OTHER, SELFPAY ==
[2020-03-18 11:40] LABS: Alanine Aminotransferase 32 IU/L (<35); Albumin 4.4 g/dL (3.5-5.0); Albumin Globulin Ratio 1.5 (1.0-2.8); Alkaline Phosphatase 78 U/L (38-126); Aspartate Aminotransferase 23 IU/L (14-36); Bilirubin Total 0.4 mg/dL (0.2-1.3); Bilirubin Unconjugated 0.3 mg/dL (0.0-1.1); HEMOLYSIS < 15 (0-50); Total Protein 7.4 g/dL (6.3-8.2)
[2020-03-19 08:35] LABS: Valproic Acid (Depakene) Total 32 ug/mL (50-100)
== END ==
PROVIDERS: Family Provider Family Medicine; PCP Physician Assistant; Referring Provider Psychiatry & Neurology Psychiatry; Visit Provider Psychiatry & Neurology Psychiatry
DX: F33.9 Major depressive disorder, recurrent, unspecified (principal)
CPT/HCPCS: 36415; 80076; 80164

== ENCOUNTER → 2020-04-24 10:19 | Outpatient (CLI) | payer OTHER, SELFPAY ==
[2020-04-25 04:47] LABS: Valproic Acid (Depakene) Total 53 ug/mL (50-100)
== END ==
PROVIDERS: Family Provider Family Medicine; PCP Physician Assistant; Referring Provider Psychiatry & Neurology Psychiatry; Visit Provider Psychiatry & Neurology Psychiatry
DX: F33.2 Major depressive disorder, recurrent severe without psychotic features (principal)
CPT/HCPCS: 36415; 80164

== ENCOUNTER → 2021-06-24 09:31 | Outpatient (CLI) | payer OTHER, SELFPAY ==
[2021-06-24 11:59] LABS: Lithium 0.5 mmol/L (0.6-1.2)
[2021-06-24 12:35] LABS: Thyroid Stimulating Hormone 3.83 uIU/mL (0.47-4.68)
== END ==
PROVIDERS: Family Provider Family Medicine; PCP Internal Medicine; Referring Provider Psychiatry & Neurology Psychiatry; Visit Provider Psychiatry & Neurology Psychiatry
DX: F33.1 Major depressive disorder, recurrent, moderate (principal)
CPT/HCPCS: 36415; 80178; 84443

== ENCOUNTER → 2021-11-19 10:40 | Outpatient (CLI) | payer OTHER, MEDICAID, SELFPAY ==
[2021-11-19 13:45] LABS: Lithium 0.8 mmol/L (0.6-1.2)
[2021-11-19 14:00] LABS: Free T3, Triiodothyronine Free 2.36 pg/mL (2.77-5.27)
[2021-11-19 14:14] LABS: Thyroid Stimulating Hormone 6.21 uIU/mL (0.47-4.68)
== END ==
PROVIDERS: Family Provider Family Medicine; PCP Internal Medicine; Referring Provider Psychiatry & Neurology Psychiatry; Visit Provider Psychiatry & Neurology Psychiatry
DX: F33.1 Major depressive disorder, recurrent, moderate (principal)
CPT/HCPCS: 36415; 80178; 84439; 84443; 84481

== ENCOUNTER → 2022-06-27 12:04 | Outpatient (CLI) | payer OTHER, MEDICAID, SELFPAY ==
[2022-06-27 12:47] LABS: Add Manual Diff / Slide Review NO; BUN Creatinine Ratio 7.1 (6-22); Basophils Absolute Auto 100 /uL (0-100); Blood Urea Nitrogen 8 mg/dL (7-17); Eosinophils Absolute Auto 100 /uL (0-450); Eosinophils Percent Auto 1.7 % (2-4); Estimated Glomerular Filt Rate > 60 mL/min (>60); Hematocrit 44.5 % (36-46); Hemoglobin 14.7 g/dL (12.0-16.0); Lithium 0.6 mmol/L (0.6-1.2); Lymphocytes Absolute Auto 1100 /uL (1100-4500); Lymphocytes Percent Auto 19.4 % (25-40); Mean Corpuscular HGB Conc 32.9 % (30-36); Mean Corpuscular Hemoglobin 28.9 PG (26-34); Mean Corpuscular Volume 87.7 fL (80-100); Monocytes Absolute Auto 300 /uL (0-900); Monocytes Percent Auto 5.6 % (3-14); Neutrophils Absolute Auto 4000 /uL (1500-7000); Neutrophils Percent Auto 72.3 % (50-75); Platelet Count 278 X10^3/uL (150-400); Red Blood Cell Count 5.08 X10^6/uL (4.0-5.2); Red Cell Distribution Width 13.9 % (11.6-14.8); White Blood Cell Count 5.6 X10^3/uL (4.5-11.0)
== END ==
PROVIDERS: Family Provider Family Medicine; PCP Internal Medicine; Referring Provider Psychiatry & Neurology Psychiatry; Visit Provider Psychiatry & Neurology Psychiatry
DX: F33.1 Major depressive disorder, recurrent, moderate (principal); H81.10 Benign paroxysmal vertigo, unspecified ear; R11.0 Nausea
CPT/HCPCS: 36415; 80178; 82565; 84520; 85025

== ENCOUNTER → 2022-07-01 13:18 | Outpatient (CLI) | payer OTHER, MEDICAID, SELFPAY ==
[2022-07-01 14:41] LABS: Erythrocyte Sedimentation Rate 3 MM/HR (0-20)
[2022-07-01 14:51] LABS: Alanine Aminotransferase 17 IU/L (<35); Alkaline Phosphatase 48 U/L (38-126); Aspartate Aminotransferase 18 IU/L (14-36); BUN Creatinine Ratio 7.4 (6-22); Bilirubin Total 0.2 mg/dL (0.2-1.3); Blood Urea Nitrogen 8 mg/dL (7-17); C-Reactive Protein Quant < 0.5 mg/dL (<1.0); Calcium 8.6 mg/dL (8.4-10.2); Carbon Dioxide 26 mmol/L (22-32); Chloride 103 mmol/L (98-107); Estimated Glomerular Filt Rate > 60 mL/min (>60); Glucose 67 mg/dL (70-100); HEMOLYSIS < 15 (0-50); Potassium 4.1 mmol/L (3.4-5.1); Sodium 140 mmol/L (137-145); Total Protein 7.6 g/dL (6.3-8.2)
[2022-07-01 15:37] LABS: Albumin 4.4 g/dL (3.5-5.0); Albumin Globulin Ratio 1.4 (1.0-2.8); Globulin 3.2 g/dL (1.7-4.1)
== END ==
PROVIDERS: Family Provider Family Medicine; PCP Physician Assistant Medical; Referring Provider Physician Assistant Medical; Visit Provider Physician Assistant Medical
DX: R10.11 Right upper quadrant pain (principal); E03.9 Hypothyroidism, unspecified
CPT/HCPCS: 36415; 80053; 84439; 84443; 85651; 86140

== ENCOUNTER 2024-09-27 20:11 | Emergency (ER) | payer OTHER, MEDICAID, SELFPAY ==
[2024-09-27 20:48] VITALS: BP 122/75; PULSE 97; RESP 15; TEMP 37.1; O2SAT 98; BMI 23.5
[2024-09-28 01:32] VITALS: BP 131/75; PULSE 75; RESP 17; O2SAT 98
[2024-09-28 01:42] LABS: Add Manual Diff / Slide Review NO; Basophils Absolute Auto 0 /uL (0-100); Basophils Percent Auto 0.4 % (0-2); Eosinophils Absolute Auto 100 /uL (0-450); Hematocrit 41.2 % (36-46); Lymphocytes Absolute Auto 700 /uL (1100-4500); Lymphocytes Percent Auto 12.8 % (25-40); Mean Corpuscular HGB Conc 33.9 % (30-36); Mean Corpuscular Hemoglobin 29.3 PG (26-34); Mean Corpuscular Volume 86.5 fL (80-100); Monocytes Absolute Auto 200 /uL (0-900); Monocytes Percent Auto 3.8 % (3-14); Neutrophils Absolute Auto 4700 /uL (1500-7000); Platelet Count 266 X10^3/uL (150-400); Red Blood Cell Count 4.76 X10^6/uL (4.0-5.2); Red Cell Distribution Width 13.1 % (11.6-14.8); White Blood Cell Count 5.8 X10^3/uL (4.5-11.0)
[2024-09-28 01:48] LABS: Alanine Aminotransferase 23 IU/L (<35); Albumin 4.5 g/dL (3.5-5.0); Albumin Globulin Ratio 1.6 (1.0-2.8); Alkaline Phosphatase 73 U/L (38-126); Aspartate Aminotransferase 23 IU/L (14-36); BUN Creatinine Ratio 7.4 (6-22); Bilirubin Total 0.5 mg/dL (0.2-1.3); Blood Urea Nitrogen 9 mg/dL (7-17); Calcium 9.2 mg/dL (8.4-10.2); Carbon Dioxide 24 mmol/L (22-32); Chloride 102 mmol/L (98-107); Estimated Glomerular Filt Rate 58 mL/min (>60); Globulin 2.8 g/dL (1.7-4.1); Glucose 100 mg/dL (70-100); HEMOLYSIS < 15 (0-50); Lipase 54 U/L (23-300); Potassium 3.6 mmol/L (3.4-5.1); Sodium 136 mmol/L (137-145); Total Protein 7.3 g/dL (6.3-8.2)
--- NOTE | 2024-09-28 02:25 | ED.GENADULT ---
HPI - General Adult General Chief complaint: Abdominal Pain Stated complaint: Constipation N/V abd pain left side Time Seen by Provider: 09/28/24 01:29 Source: patient Mode of arrival: Ambulatory History of Present Illness HPI narrative: 38-year-old woman with a history of hypothyroidism, bipolar disorder, depression presents with increasing abdominal pain for the last 5 days. She notes she has had intermittent abdominal pain since May. She has not area in the central portion of her upper abdomen that she describes his having a lump. An area in the left middle abdominal area that is seems like it consistently hurts. She typically has fairly normal bowel movements. She notes she has not had a bowel movement now for 5 days which is significantly abnormal for her. She has been having nausea and vomiting. No fevers or chills no weight loss no chest pain, palpitations or dyspnea Related Data Home Medications Medication Instructions Recorded Confirmed L norgest/E estradiol-E estrad 1 tab PO DAILY 03/04/19 09/27/24 0.15 mg-30 mcg (84)/10 mcg(7) tabs,3mos (Camrese) bupropion HCl 150 mg 24 hr tablet, 300 mg PO DAILY 09/27/24 09/27/24 extended release cetirizine 10 mg tablet (Zyrtec) 10 mg PO DAILY 09/27/24 09/27/24 famotidine 40 mg tablet 40 mg PO BID 09/27/24 09/27/24 hydroxyzine pamoate 25 mg capsule 25 mg PO DAILY PRN Anxiety 09/27/24 09/27/24 (Vistaril) levothyroxine 75 mcg tablet 75 mcg PO DAILY 09/27/24 09/27/24 lithium carbonate 300 mg 900 mg PO DAILY 09/27/24 09/27/24 tablet,extended release lorazepam 0.5 mg tablet 0.5 mg PO DAILY PRN Anxiety 09/27/24 09/27/24 [id number]-[id number]-minerals 18 1 tab PO DAILY 09/27/24 09/27/24 mg-0.4 mg tablet naltrexone 4.5 mg capsule 4.5 mg PO DAILY 09/27/24 09/27/24 ondansetron 4 mg disintegrating 4 mg PO Q6H PRN nausea/vomiting 09/27/24 09/27/24 tablet sertraline 100 mg tablet 100 mg PO DAILY 09/27/24 09/27/24 Allergies Allergy/AdvReac Type Severity Reaction Status Date / Time lamotrigine Allergy Severe Rash Verified 04/23/20 13:43 azithromycin [AZITHROMYCIN] Allergy Unknown Verified 04/23/20 13:43 Sulfa (Sulfonamide Allergy Unknown Verified 04/23/20 13:43 Antibiotics) [SULFA (SULFONAMIDE ANTIBIOTICS)] Review of Systems Review of Systems Narrative: Pertinent positive and negative findings as per HPI Patient History Medical History (Updated 09/28/24 @ 05:13 by Sherley Gastelum MD) Asthma Depression Anxiety Surgical History Status post dilation and curettage (11/24/16) History of elective (2012) History of third molar tooth extraction Social History marital status: number of children: 1 household members: spouse and children lives independently: Yes housing: house Smoking Status: Former smoker Smoking Status: Former smoker tobacco type: cigarettes alcohol intake frequency: other Exam Initial Vital Signs Initial Vital Signs: Vital Signs Temperature 98.7 F 09/27/24 20:48 Pulse Rate 97 H 09/27/24 20:48 Respiratory Rate 15 09/27/24 20:48 Blood Pressure 122/75 09/27/24 20:48 Pulse Oximetry 98 09/27/24 20:48 Oxygen Delivery Method Room Air 09/27/24 20:48 General: Healthy appearing, in no acute distress. Able to give a complete and coherent history. Well-nourished well-developed HEENT: Moist mucous membranes, normal sclera with reactive pupils, Respiratory: Lungs are clear to auscultation, no wheezing no rales no rhonchi. Full and symmetrical air movement Cardiac: Regular rate and rhythm no murmurs no bruits Abdomen: Soft, there is some supra umbilical up to the epigastrium tenderness with suggestion of fullness. No rebound or guarding Skin: Warm and dry, no rashes Neurologic: Grossly neurologically intact with no obvious asymmetries or abnormalities Extremities: No trauma, well perfused Psych: Cooperative, appropriate insight and affect Course Orders Ordered: ED Orders 09/28/24 01:25 Complete Blood Count AUTO DIFF Stat Comprehensive Metabolic Panel Stat Lipase Stat Red Bud Stat 09/28/24 02:42 CT abdomen pelvis w con Stat 09/28/24 02:50 Urine Microscopic Stat Ondansetron HCl (Ondansetron 4 Mg/2 Ml Inj) 4 mg IV NOW PRN PRN Reason: Nausea And Vomiting Ondansetron HCl (Ondansetron 4 Mg Odt) 4 mg PO NOW PRN PRN Reason: Nausea And Vomiting Discontinued Medications Sodium Chloride (Normal Saline 0.9%) 1,000 mls @ 1,000 mls/hr IV BOLUS ONE Stop: 09/28/24 03:41 Last Admin: 09/28/24 03:13 Dose: 1,000 mls/hr Documented By: SIS Vital Signs Vital signs: Vital Signs - 8 hr 09/27/24 20:48 09/28/24 01:32 Temperature 98.7 F Pulse Rate 97 H 75 Respiratory Rate 15 17 Blood Pressure 122/75 131/75 Pulse Oximetry 98 98 Oxygen Delivery Method Room Air Room Air Medical Decision Making Lab Data 09/28/24 01:25 09/28/24 01:25 Labs: Lab Results 09/28/24 09/28/24 Range/Units 01:25 02:50 WBC 5.8 (4.5-11.0) X10^3/uL RBC 4.76 (4.0-5.2) X10^6/uL Hgb 14.0 (12.0-16.0) g/dL Hct 41.2 (36-46) % MCV 86.5 (80-100) fL MCH 29.3 (26-34) PG MCHC 33.9 (30-36) % RDW 13.1 (11.6-14.8) % Plt Count 266 (150-400) X10^3/uL Neut % (Auto) 82.0 H (50-75) % Lymph % (Auto) 12.8 L (25-40) % Hendricks % (Auto) 3.8 (3-14) % Eos % (Auto) 1.0 L (2-4) % Baso % (Auto) 0.4 (0-2) % Neut # (Auto) 4700 (7305-5208) /uL Lymph # (Auto) 700 L (2093-1553) /uL Hendricks # (Auto) 200 (0-900) /uL Eos # (Auto) 100 (0-450) /uL Baso # (Auto) 0 (0-100) /uL Sodium 136 L (137-145) mmol/L Potassium 3.6 (3.4-5.1) mmol/L Chloride 102 (98-107) mmol/L Carbon Dioxide 24 (22-32) mmol/L BUN 9 (7-17) mg/dL Creatinine 1.21 H (0.52-1.04) mg/dL Estimated GFR 58 L (>60) mL/min BUN/Creatinine Ratio 7.4 (6-22) Glucose 100 (70-100) mg/dL Calcium 9.2 (8.4-10.2) mg/dL Total Bilirubin 0.5 (0.2-1.3) mg/dL AST 23 (14-36) IU/L ALT 23 (<35) IU/L Alkaline Phosphatase 73 (38-126) U/L Total Protein 7.3 (6.3-8.2) g/dL Albumin 4.5 (3.5-5.0) g/dL Globulin 2.8 (1.7-4.1) g/dL Albumin/Globulin Ratio 1.6 (1.0-2.8) Lipase 54 (23-300) U/L Urine RBC 0-1/hpf (0-5/HPF) Urine WBC 0-1/hpf (0-5/HPF) Ur Squamous Epith Cells 10-30 /hpf H D (0-5/HPF) Amorphous Sediment 1+ Urine Bacteria Few (2-10) H (None) Urine Mucus 1+ H (Negative) Ur Culture Indicated? Cult not indicated Vol Urine Centrifuged 10ml (spun) Red Bud 1.8 H* (0.6-1.2) mmol/L Point of Care Testing Test Results Negative Urine Dip Bedside Urine Glucose Negative Bedside Urine Bilirubin - Negative Bedside Urine Ketone - Negative Urine Specific [place] 1.010 Bedside Urine Occult Blood - Negative Bedside Urine pH 7.0 Bedside Urine Protein +/- 15 Bedside Urine Urobilinogen +/- 1mg Bedside Urine Nitrite - Negative Bedside Urine Leukocytes + 70 Esterase Point of care testing: Point of Care Testing Test Results Negative Urine Dip Bedside Urine Glucose Negative Bedside Urine Bilirubin - Negative Bedside Urine Ketone - Negative Urine Specific [place] 1.010 Bedside Urine Occult Blood - Negative Bedside Urine pH 7.0 Bedside Urine Protein +/- 15 Bedside Urine Urobilinogen +/- 1mg Bedside Urine Nitrite - Negative Bedside Urine Leukocytes + 70 Esterase MDM Narrative Medical decision making narrative: CC: Abdominal pain noticeable for 4 months worse over the last 4 days Complicating co-morbidities: Bipolar disorder on lithium, depression anxiety Data collected from: patient Medical records reviewed: No recent medical records, off available for review are from 2019 and 2019 Differential considered: Constipation, bowel obstruction, neoplastic process, medication toxicity Exam documented above, pertinent findings include: Alert and appropriate. Question of the fullness in the upper abdomen which is the area of tenderness. No rebound or guarding remainder of exam is benign Lab Test results independently reviewed as above. Pertinent findings: CBC is reassuring Chemistries show a creatinine of 1.2 with a GFR of 58, liver studies are unremarkable Urine shows multiple squamous cells do not suspect infection Urine test is negative Red Bud level is elevated at 1.8, normal range is 0.6-1.2 -patient typically takes her dose at night, last dose was 6:00 p.m. and blood draw was at 2:00 a.m. this is appropriate for timing Imaging studies independently reviewed: CT scan of the abdomen and pelvis shows no acute findings, no bowel obstruction, biliary obstruction or obstructive uropathy as well as a normal appendix. Treatments: Zofran, a L of fluid Discussion: Findings are all reviewed with the patient. She is feeling somewhat better. Explained the unremarkable CT. We did talk about using MiraLax, a cap full every 30 minutes until her stool becomes quite loose but not all the way to clear. I think that this may help with her overall pain. She was more than willing to give that a try. Her elevated lithium level is appropriate for timing of last dose given. Remainder of workup is quite reassuring I am seeing no bowel obstruction, gallbladder problems, pancreatitis, masses or tumors, appendicitis. Findings reviewed with the patient. There was no indication for further imaging or hospitalization and she will be discharged Discharge Plan Departure Patient Disposition: Home Clinical Impression: Abdominal pain Qualifiers: Abdominal location: generalized Qualified Code(s): R10.84 - Generalized abdominal pain Constipation Qualifiers: Constipation type: unspecified constipation type Qualified Code(s): K59.00 - Constipation, unspecified Instructions: DI for Abdominal Pain-Adult, DI for Constipation Activity Restrictions/Additional Instructions: Thank you for coming in today Your workup is actually quite reassuring. There is no evidence of bacterial infection, kidney or liver problems or acute blood loss. CT scan showed no masses, tumors, problems with your gallbladder or pancreas. It also showed quite a bit of stool throughout your colon. This may be contributing to your pain. I am going to suggest that you take a cap full of MiraLax and a large glass of water or juice every 30 minutes until your stool is quite liquid. With a full bowel prep we want you to continue drinking until everything is clear, the goal for this is to clear the stool out of your colon and see if it helps. If it helps, your pain is better. If your pain is still there you at least have a clean colon. I would follow up with your primary care physician. If you find that you are getting worse or develop any new symptoms, please feel free to return to the emergency department for further evaluation. Prescriptions: No Action famotidine 40 mg Tablet 40 mg PO BID sertraline 100 mg tablet 100 mg PO DAILY lorazepam 0.5 mg tablet 0.5 mg PO DAILY PRN (Reason: Anxiety) Patient Comments: 0.5 mg orally twice a day As Needed for anxiety or sleep; Take 1/2 - 1 tablet by mouth twice a day for anxiety/ panic, NTE 2 tablets daily, use sparingly to reduce risk of dependence/overuse bupropion HCl 150 mg tablet extended release 24 hr 300 mg PO DAILY cetirizine [Zyrtec] 10 mg Tablet 10 mg PO DAILY lithium carbonate 300 mg tablet extended release 900 mg PO DAILY Women's Daily Multivitamin 18-0.4 mg Tablet 1 tab PO DAILY levothyroxine 75 mcg Tablet 75 mcg PO DAILY naltrexone 4.5 mg Capsule 4.5 mg PO DAILY ondansetron 4 mg tablet,disintegrating 4 mg PO Q6H PRN (Reason: nausea/vomiting) hydroxyzine pamoate [Vistaril] 25 mg Capsule 25 mg PO DAILY PRN (Reason: Anxiety) L norgest/e.estradiol-e.estrad [Camrese] 0.15 mg-30 mcg (84)/10 mcg (7) tablets,dose pack,3 month 1 tab PO DAILY Referrals: Indira Cardoza PA-C [Primary Care Provider] - Stand Alone Forms: Patient Portal/API/Survey
--- NOTE | 2024-09-28 02:42 | DI.CT.S_ITS ---
PROCEDURE: CT ABDOMEN PELVIS W CON INDICATIONS: abdominal pain for 4 months, no BM for 5 days TECHNIQUE: After the administration of intravenous contrast, axial sections acquired from the lung bases to the pubic symphysis. Coronal and sagittal reformats were performed. For radiation dose reduction, the following was used: automated exposure control, adjustment of mA and/or kV according to patient size. COMPARISON: None. FINDINGS: Image quality: Diagnostic. Lower Chest: No significant findings. ABDOMEN: Liver: No solid mass. Gallbladder: No radiopaque gallstones or wall thickening. Biliary ducts: No biliary dilation. Pancreas: No ductal dilation. Spleen: Size is within normal limits. Adrenal Glands: No adrenal nodules. Kidneys and Ureters: No hydronephrosis. No solid mass. No complex renal cystic lesion which requires follow up. Stomach and Bowel: Normal colonic caliber, without significant wall thickening. Normal appendix. Moderate to large volume of stool. Peritoneum: No abnormal intraperitoneal fluid. No free air. Ventral Wall: No significant ventral hernia. Abdominal Nodes: No retroperitoneal or mesenteric adenopathy by size criteria. Vessels: Aorta and inferior vena cava are normal in size. PELVIS: Pelvic Organs: Unremarkable. Bladder: No bladder wall thickening, accounting for underdistention. Pelvic Nodes: No enlarged lymph nodes. Miscellaneous: No inguinal hernias are seen. Bones: No aggressive osseous abnormality. IMPRESSION: No acute findings of the abdomen or pelvis to explain patient's symptoms. Moderate stool volume. Normal appendix. Interpretation is concordant with overnight read. Dictated by: Edenilson Santillan M.D. on 09/28/2024 at 8:13 Approved by: Edenilson Santillan M.D. on 09/28/2024 at 8:15
[2024-09-28 02:59] LABS: Lithium 1.8 mmol/L (0.6-1.2)
[2024-09-28] MEDS: SODIUM CHLORIDE 0.9% 1,000 ML 1000 ML IV (03:13)
[2024-09-28 03:20] LABS: Amorphous Sediment Urine 1+; Bacteria Urine Few (2-10); RBC Urine 0-1/HPF (0-5/HPF); Squamous Epithelial Cell Urine 10-30 /HPF (0-5/HPF); Urine Volume 10mL (spun); WBC Urine 0-1/HPF (0-5/HPF)
[2024-09-28 03:21] LABS: Culture Indicated Urine Cult Not Indicated; Mucus Urine 1+ (Negative)
[2024-09-28 05:38] VITALS: BP 110/56; PULSE 72; RESP 16; O2SAT 97
== END 2024-09-28 05:39 | disposition home or self-care (01) ==
PROVIDERS: Emergency Provider Emergency Medicine; PCP Physician Assistant Medical
DX: R10.84 Generalized abdominal pain (principal); K59.00 Constipation, unspecified
CPT/HCPCS: 36415; 74177; 80053; 80178; 81003; 81015; 81025; 83690; 85025; 96360; 99284; Q9967